=== PATIENT | female | born 1995 | race Caucasian/White ===

== ENCOUNTER 2016-09-18 12:39 | Day surgery (SDC) ==
[2016-09-17 10:48] LABS: HEMATOCRIT 43.5 % (37.0-47.0); HEMOGLOBIN 14.6 g/dL (12.0-16.0); MCH 29.4 PG (27-31); MCHC 33.6 g/dL (33-37); MCV 87.5 FL (81-99); MPV 9.9 FL (7.4-10.4); RBC 4.97 XMIL (4.2-5.4)
[2016-09-17 11:03] LABS: AGAP 12; BUN 9 mg/dL (8-22); CALCIUM 9.4 mg/dL (8.8-10.2); CHLORIDE 105 mmol/L (98-107); COSMO 284; POTASSIUM 4.6 mmol/L (3.5-5.1); SODIUM 143 mmol/L (136-145); TCO2 26 mmol/L (25-35); URIC ACID 4.2 mg/dL (2.4-5.7)
[2016-09-18] MEDS ORDERED: LR 1,000 ML ONE (12:56)
--- NOTE | 2016-09-18 13:34 | Diag Imaging Result Document ---
PROCEDURE NAME: DENYS ABDOMEN - 09/18/2016 KUB: FINDINGS: There is stool throughout the colon. There is no evidence of organomegaly or mass. Compared to 07/27/2014, there has been no significant change in the appearance of the abdomen otherwise. IMPRESSION: Constipation.
[2016-09-18] MEDS ORDERED: KEFZOL 1 GM/D5W 50 ML ONE (14:31)
[2016-09-18] MEDS ORDERED: DILAUDID ONE ×2 (17:02→17:28)
[2016-09-18] MEDS ORDERED: NORCO-10 ONE (17:54)
[2016-09-18] MEDS ORDERED: FLOMAX ONE (17:54)
[2016-09-18] MEDS ORDERED: TRANSDERM-SCOP TD ONE (18:49)
[2016-09-18 18:59] VITALS: BP 121/98
[2016-09-18] MEDS ORDERED: DIPRIVAN 1% ONE (19:17)
--- NOTE | 2016-09-18 19:51 | OPERATIVE NOTE ---
PROCEDURE DATE: 09/18/2016 SURGEON: Fernando Medrano MD . PREOPERATIVE DIAGNOSIS: Right flank pain with a right proximal ureteral stone. POSTOPERATIVE DIAGNOSIS: Right flank pain with a right proximal ureteral stone. PROCEDURE PERFORMED: Extracorporeal shockwave lithotripsy of the right proximal ureteral stone. ANESTHESIA: General via laryngeal mask. FINDINGS: An approximate 5-6 mm stone in the right proximal ureter. It was poorly calcified and difficult to visualize, but we were able to visualize it enough to do shockwave lithotripsy. INDICATIONS FOR PROCEDURE: This 21-year-old female with history of renal lithiasis developed severe right flank pain. CT stone search revealed a 5 mm right proximal ureteral stone with mild to moderate hydronephrosis. DESCRIPTION OF PROCEDURE: After informed consent was obtained from the patient, her receiving IV antibiotics, she was taken the main OR, placed in the supine position. General anesthesia via laryngeal mask was achieved. She was then placed in a proper position for right shockwave lithotripsy. The stone received 3000 shocks, starting at energy level 1, ramping to energy level 8. She received 12.5 g of mannitol at start of the case. At completion, the stone appeared well fragmented. Total fluoroscopy time was 4 minutes 27 seconds. She tolerated the procedure well. Estimated blood loss was 0. She was taken to recovery room in good condition.
[2016-09-19] MEDS ORDERED: ZOFRAN ONE (09:38)
[2016-09-19] MEDS ORDERED: MANNITOL ONE (09:38)
[2016-09-19] MEDS ORDERED: XYLOCAINE-MPF 2% ONE (09:38)
[2016-09-19] MEDS ORDERED: LR 1,000 ML ONE (09:38)
== END 2016-09-18 19:08 | disposition home or self-care (01) ==
LOC: OPS 12:39
PROVIDERS: ATTEND Urology
DX: N20.1 Calculus of ureter (principal)
CPT/HCPCS: 74000; 80048; 84550; 84703; 85027; J0690; J1170; J7120